=== PATIENT | female | born 1965 | race Hispanic/Latino ===

== ENCOUNTER → 2018-10-05 | Day surgery (SDC) | payer OTHER ==
[~2018-10-05] MED LIST: ACETAMINOPHEN 1000 MG/100 ML IV ONE; ASPIR 8181 MG PO; ATORVASTATIN CA40 MG PO; BUPIVACAINE 0.5%/EPI 30 ML SDV INJ ONE; CEFAZOLIN SOD 2 GM/D5W 50ML 50 ML IV ONE; DEXAMETHASONE SOD PHOS INJ 4 MG/ML VIAL ONE; FENTANYL CITRATE/PF 100MCG/2 ML INJ ONE; FLUOXETINE HCL20 MG PO; IBUPROFEN400 MG PO; LIDOCAINE HCL 2% LOCAL INJ 5 ML SDV VIAL INJ ONE; METOPROLOL TART50 MG PO; MIDAZOLAM HCL 2 MG/2 ML VIAL ONE; ONDANSETRON HCL INJ 2 MG/ML VIAL ONE; PROPOFOL IV EMULSION 10 MG/ML 20 ML VIAL ONE; SEVOFLURANE INHAL SOLN 250 ML PEN BTL ONE; SIMVASTATIN PO; VITAMIN D250000 UNIT PO
[2018-10-05 10:55] VITALS: BP 127/91
--- NOTE | 2018-10-05 15:20 | Operative Report ---
DATE OF PROCEDURE: October 05, 2018 PREOPERATIVE DIAGNOSES 1. Left knee medial meniscus tear. 2. Left knee lateral meniscus tear. 3. Left knee degenerative joint disease of the knee. POSTOPERATIVE DIAGNOSES 1. Left knee medial meniscus tear. 2. Left knee degenerative joint disease of the knee. PROCEDURES PERFORMED 1. Left knee examination under anesthesia. 2. Left knee arthroscopy. 3. Left knee partial medial meniscectomy. 4. Left knee chondroplasties of the patella, the trochlea, the medial femoral condyle, medial tibial plateau, the lateral femoral condyle, lateral tibial plateau. WILDLIFE REMOVAL SPECIALIST: Cheyanne Bella NP ANESTHESIA: General endotracheal intubation anesthesia. IV FLUIDS: Per the anesthesia record. OPERATIVE PROCEDURE IN DETAIL: Ms. Mistry was taken to the operating room and placed in the supine position on the operating table. Following induction of general anesthesia as well as general endotracheal intubation, the patient's left lower extremity was examined under anesthesia. She was found to have a mild effusion within the knee joint but an otherwise ligamentously stable knee. The patient's lower extremity was prepped and draped in the standard surgical fashion. A 2-portal technique was used to provide this patient arthroscopic evaluation of the knee joint. Examination of the suprapatellar pouch, medial and lateral gutters found no evidence of loose bodies. The scope was advanced in the medial compartment. The patient was found to have a torn medial meniscus. She also had chondromalacia of the articulating surfaces. A combination of biting forceps and a motorized shaver were used to resect the torn portion of the meniscus. Chondroplasties of the medial femoral condyle and medial tibial plateau were performed at this time. The scope was then advanced to the intercondylar notch, and the anterior cruciate ligament was identified and found to be intact. Scope was advanced in the lateral compartment. There was chondromalacia of the articulating surfaces. The lateral meniscus was evaluated thoroughly and found to only have some mild wear. There was no evidence of meniscus injury. Chondroplasties of the lateral femoral condyle and lateral tibial plateau were performed at this time. The scope was then advanced in the suprapatellar pouch. Chondroplasties of the patella and trochlea were performed. The knee was deflated of its sterile normal saline. The portal sites were closed. The knee was injected with 0.5% Marcaine with epinephrine. Sterile dressings were applied. The patient was awakened and taken to postanesthesia care unit in stable condition. Job#: [id number]
== END | disposition home or self-care (01) ==
LOC: OR 06:42
PROVIDERS: ATTEND Specialist
DX: S83.222A Peripheral tear of medial meniscus, current injury, left knee, initial encounter (principal); M17.12 Unilateral primary osteoarthritis, left knee; M22.42 Chondromalacia patellae, left knee; I10 Essential (primary) hypertension; G47.33 Obstructive sleep apnea (adult) (pediatric); R00.1 Bradycardia, unspecified; E78.00 Pure hypercholesterolemia, unspecified; X58.XXXA Exposure to other specified factors, initial encounter; Z01.810 Encounter for preprocedural cardiovascular examination; Z79.82 Long term (current) use of aspirin; Z68.41 Body mass index [BMI] 40.0-44.9, adult; Z82.61 Family history of arthritis
CPT/HCPCS: 29881; 93005; J0131; J0690; J1100; J2001; J2250; J2405; J2704